=== PATIENT | male | born 1970 | race Caucasian/White ===

== ENCOUNTER 2016-12-28 15:24 | Emergency (ER) | payer SELFPAY ==
[~2016-12-28] VITALS: Ht 180.3 cm; Wt 84.0 kg
[~2016-12-28 15:24] MED LIST: ASPI325T PO; PERC5TAB12 PO
[2016-12-28 15:35] VITALS: BP 142/83; PULSE 89; RESP 18; TEMP 98.5; O2SAT 97
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
== END 2016-12-28 16:47 | disposition left against medical advice (07) ==
LOC: PHEFT 15:24
DX: C44.509 Unspecified malignant neoplasm of skin of other part of trunk (principal); F17.200 Nicotine dependence, unspecified, uncomplicated
CPT/HCPCS: 99281

== ENCOUNTER 2017-03-24 18:48 | Emergency (ER) | payer SELFPAY ==
[2017-03-24 18:50] VITALS: BP 131/94; PULSE 87; RESP 20; TEMP 98.5; O2SAT 98
[2017-03-24] MEDS ORDERED: KETOROLAC TROMETHAMINE 30 MG/ML (IVP) VIAL IV PUSH ONE (19:15)
[2017-03-24] MEDS ORDERED: SODIUM CHLORIDE 0.9% FLUSH 10 ML FLUSH IV FLUSH PRN (19:15)
--- NOTE | 2017-03-24 19:22 | PD ---
HPI Chief Complaint: ENT Complaint Time Seen by Provider: 19:12 Travel History International Travel<30 days: No Contact w/Intl Traveler<30days: No Traveled to known affect area: No History of Present Illness HPI 46-year-old male here for evaluation of left neck mass and pain with swallowing. Symptoms started 2 days ago and have been progressively getting worse. He is able to swallow and tolerate his secretions, however he states it is painful to do so. He denies fevers or chills. Pain is moderate. No other physical complaints. He smokes cigarettes. PFSH Past Medical History Hx Anticoagulant Therapy: Yes (325 MG ASA) Anxiety: Yes Depression: No Heart Rhythm Problems: No Cancer: Yes (carcinoma /melanoma on upper right back) Cardiovascular Problems: No High Cholesterol: No Chemotherapy: No Chest Pain: Yes Cerebrovascular Accident: No Diabetes: No Diminished Hearing: No Deep Vein Thrombosis: Yes (RIGHT THUMB) Endocrine: No Gastrointestinal Disorders: No Genitourinary: No Immune Disorder: No Implanted Vascular Access Dvce: No Musculoskeletal: Yes (chronic back pain) Neurologic: No Psychiatric: No Reproductive: No Respiratory: No Integumentary: Yes (chronic lesion to right posterior back x 2 yrs, skin CA) Immunizations Current: Yes Radiation Therapy: No Past Surgical History Abdominal Surgery: No Cardiac Surgery: No Ear Surgery: No Endocrine Surgery: No Genitourinary Surgery: No Gynecologic Surgery: No Hysterectomy: No Neurologic Surgery: No Oral Surgery: No Thoracic Surgery: No Other Surgery: Yes Social History Alcohol Use: No (QUIT 2015) Tobacco Use: Yes (1/2 PPD) Substance Use: No Allergies-Medications (Allergen,Severity, Reaction): Coded Allergies: Codeine (Verified Allergy, Severe, THROAT SWELLS, 03/24/17) Ultram (Verified Allergy, Mild, HIVES, 03/24/17) Reported Meds & Prescriptions Reported Meds & Active Scripts Active No Active Prescriptions or Reported Medications Review of Systems Except as stated in HPI: all other systems reviewed are Neg Physical Exam Narrative GENERAL: Well-developed, well-nourished, sitting comfortably on chair, no acute distress. HEAD: Atraumatic. Normocephalic. EYES: Pupils equal and round. No scleral icterus. No injection or drainage. ENT: Mucous membranes pink and moist. Normal pharynx. Uvula midline. Normal phonation. No drooling or stridor. NECK: Trachea midline. No JVD. Left submandibular solid mass approximately 3 cm x 2 cm, mobile/not fixed, no induration, no fluctuance, no overlying warmth or erythema. CARDIOVASCULAR: Regular rate and rhythm. RESPIRATORY: No accessory muscle use. Clear to auscultation. Breath sounds equal bilaterally. MUSCULOSKELETAL: No obvious deformities. No clubbing. No cyanosis. No edema. NEUROLOGICAL: Awake and alert. No obvious cranial nerve deficits. Motor grossly within normal limits. Normal speech. PSYCHIATRIC: Appropriate mood and affect; insight and judgment normal. Data Data Last Documented VS Vital Signs Date Time Temp Pulse Resp B/P Pulse Ox O2 Delivery O2 Flow Rate FiO2 03/24/17 18:50 98.5 87 20 131/94 98 Orders Basic Metabolic Panel (Bmp) (03/24/17 19:15) Complete Blood Count With Diff (03/24/17 19:15) Iv Access Insert/Monitor (03/24/17 19:15) Ecg Monitoring (03/24/17 19:15) Oximetry (03/24/17 19:15) Sodium Chloride 0.9% Flush (Ns Flush) (03/24/17 19:15) Ketorolac Inj (Toradol Inj) (03/24/17 19:15) Ct Soft Tiss Neck W Iv Cont (03/24/17 ) Oxycodone-Acetamin 5-325 Mg (Percocet (03/24/17 20:30) Iohexol 350 Inj (Omnipaque 350 Inj) (03/24/17 20:48) Labs Laboratory Tests Test 03/24/17 19:20 White Blood Count 10.2 TH/MM3 Red Blood Count 4.33 MIL/MM3 Hemoglobin 14.5 GM/DL Hematocrit 43.5 % Mean Corpuscular Volume 100.3 FL Mean Corpuscular Hemoglobin 33.6 PG Mean Corpuscular Hemoglobin 33.5 % Concent Red Cell Distribution Width 13.6 % Platelet Count 240 TH/MM3 Mean Platelet Volume 8.8 FL Neutrophils (%) (Auto) 65.0 % Lymphocytes (%) (Auto) 21.6 % Monocytes (%) (Auto) 8.0 % Eosinophils (%) (Auto) 2.1 % Basophils (%) (Auto) 3.3 % Neutrophils # (Auto) 6.7 TH/MM3 Lymphocytes # (Auto) 2.2 TH/MM3 Monocytes # (Auto) 0.8 TH/MM3 Eosinophils # (Auto) 0.2 TH/MM3 Basophils # (Auto) 0.3 TH/MM3 CBC Comment DIFF FINAL Differential Comment Sodium Level 139 MEQ/L Potassium Level 3.5 MEQ/L Chloride Level 102 MEQ/L Carbon Dioxide Level 29.6 MEQ/L Anion Gap 7 MEQ/L Blood Urea Nitrogen 10 MG/DL Creatinine 1.00 MG/DL Estimat Glomerular Filtration 80 ML/MIN Rate Random Glucose 92 MG/DL Calcium Level 8.9 MG/DL [facility] Medical Decision Making Medical Screen Exam Complete: Yes Emergency Medical Condition: Yes Medical Record Reviewed: Yes Differential Diagnosis Sialolithiasis, lymphadenopathy, neck mass Narrative Course Vital signs show heart rate 87, blood pressure 131/94, pulse ox 98% on room air , oral temp of 98.5F. CBC shows WBC 10.2, hemoglobin 14.5, hematocrit 43.5, platelets 240. BMP is unremarkable. CT soft tissue neck: CONCLUSION: 1. Single prominent left cervical chain node measuring up to 1.8 x 1.7 cm with no necrosis. This is nonspecific but may be reactive. 2. No mucosal lesions identified. 3. Mild emphysema in the lung apices. Patient was made aware of CT and lab findings. He is resting comfortably and tolerating coffee without difficulty. He does have a rather large skin lesion on his right mid back which she has been to the emergency department several times for and has been referred for outpatient follow-up for biopsy, however the patient has missed these appointments. He was also given a mandatory referral to follow-up with Dr. Vitale, however the patient missed his appointment because he was arrested for a traffic violation. This wound/skin lesion is weeping today, and a sterile pressure dressing was applied. I stressed the importance of follow-up to obtain a biopsy as this is likely skin cancer. As for his lymphadenopathy, the patient will be started on Keflex as he has no insurance and this is either free or a few dollars at [employer]. I will again order a mandatory outpatient follow-up for this patient and I'll also given the information to the [facility] where he can follow-up for further treatment and evaluation. He was informed on when to return to the emergency department. He verbalizes understanding and agreement with plan. Diagnosis Primary Impression: Pharyngitis Qualified Code: J02.9 - Pharyngitis, unspecified etiology Additional Impression: Cervical lymphadenopathy Referrals: Olga Vitale MD 3 days [facility] 3 days Primary Care Physician 3 days Additional Instructions: Follow-up with a primary care physician this week. Take antibiotic as prescribed. Return to the emergency department for worsening symptoms or any other concerns. Scripts Oxycodone-Acetaminophen (Percocet)5-325 mg Tab1 Tab PO Q6H PRN (PAIN) #15 TAB Ref 0 Prov:Arian Sapp MD 03/24/17 Cephalexin (Keflex)500 Mg Giz056 Mg PO Q8H #30 CAP Ref 0 Prov:Arian Sapp MD 03/24/17 Disposition: 01 DISCHARGE HOME Condition: Stable Arian Sapp MD Mar 24, 2017 19:22
[2017-03-24 19:42] LABS: AUTOMATED NEUTROPHIL # 6.7 TH/MM3 (1.8-7.7); BASOPHIL # 0.3 TH/MM3 (0-0.2); BASOPHIL % 3.3 % (0.0-2.0); EOSINOPHIL # 0.2 TH/MM3 (0-0.4); EOSINOPHIL % 2.1 % (0.0-4.0); HEMATOCRIT 43.5 % (39.0-51.0); HEMO FLAGS DIFF FINAL; LYMPH % 21.6 % (9.0-44.0); LYMPHOCYTE # 2.2 TH/MM3 (1.0-4.8); MEAN CELL VOLUME 100.3 FL (80.0-100.0); MEAN CORPUSCULAR HEMOGLOBIN 33.6 PG (27.0-34.0); MEAN CORPUSCULAR HGB CONC 33.5 % (32.0-36.0); PLATELET COUNT 240 TH/MM3 (150-450); RED BLOOD COUNT 4.33 MIL/MM3 (4.50-5.90); RED CELL DISTRIBUTION WIDTH 13.6 % (11.6-17.2); WHITE BLOOD COUNT 10.2 TH/MM3 (4.0-11.0)
[2017-03-24 19:53] LABS: POTASSIUM 3.5 MEQ/L (3.5-5.1)
[2017-03-24 19:56] LABS: BICARBONATE 29.6 MEQ/L (21.0-32.0)
[2017-03-24] MEDS ORDERED: oxyCODONE/ACETAMINOPHEN 5 MG/325 MG TAB PO ONE (20:30)
[2017-03-24] MEDS ORDERED: IOHEXOL 350 MG/ML 10 ML VIAL (for RAD DIAG) IV ONE (20:48)
--- NOTE | 2017-03-24 21:02 | RADRPT ---
EXAM DATE/TIME: 03/24/2017 20:36 [facility] COMPARISON: No previous studies available for comparison. INDICATIONS : Dysphagia, left sided neck swelling. IV CONTRAST: 75 cc Omnipaque 350 (iohexol) IV RADIATION DOSE: 12.64 CTDIvol (mGy) MEDICAL HISTORY : None SURGICAL HISTORY : None. ENCOUNTER: Initial ACUITY: 1 day PAIN SCALE: 8/10 LOCATION: Left neck TECHNIQUE: Volumetric scanning of the neck was performed. Using automated exposure control and adjustment of th e mA and/or kV according to patient size, radiation dose was kept as low as reasonably achievable to obtain optimal diagnostic quality images. DICOM format image data is available electronically for r eview and comparison. FINDINGS: NASOPHARYNX: The nasopharyngeal airway has a normal configuration. No mucosal thickening or mass is seen. OROPHARYNX: The intrinsic muscles of the tongue are symmetric. The tonsillar pillars are intact. The prevertebr al soft tissues are not thickened. LARYNX: The supraglottic, glottic, and infraglottic structures are intact. PARAPHARYNGEAL: The parapharyngeal space is intact. SALIVARY GLANDS: The parotid and submandibular glands are intact. LYMPH NODES: There is small scattered reactive appearing cervical chain nodes as well as a single prominent left c ervical chain node at the angle of the mandible measuring up to approximately 1.8 x 1.7 cm with no ne crosis. THYROID: Homogeneous enhancement without evidence of nodule. BONES: Unremarkable. There is mild emphysema in the lung apices. CONCLUSION: 1. Single prominent left cervical chain node measuring up to 1.8 x 1.7 cm with no necrosis. This is n onspecific but may be reactive. 2. No mucosal lesions identified. 3. Mild emphysema in the lung apices. Alvino Hidalgo MD on March 24, 2017 at 20:57 Board Certified Radiologist. This report was verified electronically.
[2017-03-24] MEDS ORDERED: CEPHALEXIN MONOHYDRATE 500 MG CAP PO ONE (21:15)
[2017-03-24] MEDS ORDERED: PERC5TAB12 PO (21:16)
[2017-03-24] MEDS ORDERED: CEPH-460 PO (21:16)
[2017-03-24 21:25] VITALS: BP 154/91
== END 2017-03-24 21:30 | disposition home or self-care (01) ==
LOC: PHED 18:48
DX: J02.9 Acute pharyngitis, unspecified (principal); R59.0 Localized enlarged lymph nodes; Z85.820 Personal history of malignant melanoma of skin; Z86.718 Personal history of other venous thrombosis and embolism; Z79.82 Long term (current) use of aspirin; F17.210 Nicotine dependence, cigarettes, uncomplicated
CPT/HCPCS: 70491; 80048; 85025; 96374; 99285; J1885; Q9967

== ENCOUNTER 2017-04-24 17:34 | Emergency (ER) | payer SELFPAY ==
[~2017-04-24 17:34] MED LIST changes: -ASPI325T PO; +CEPH-460 PO
[2017-04-24 17:36] VITALS: BP 124/75; PULSE 86; RESP 20; TEMP 98.3; O2SAT 97
[2017-04-24] MEDS ORDERED: CLINDAMYCIN 150 MG CAP PO ONE (17:45)
[2017-04-24] MEDS ORDERED: KETOROLAC TROMETHAMINE 60 MG/2 ML (IM) VIAL IM ONE (17:45)
[2017-04-24] MEDS ORDERED: LIDOCAINE VISCOUS 2% SOLN 15 ML UDC PO ONE (17:45)
[2017-04-24] MEDS ORDERED: ALUMINUM/MAGNESIUM/SIMETH 30 ML CUP PO ONE (17:45)
[2017-04-24] MEDS ORDERED: predniSONE 50 MG TAB PO ONE (17:45)
[2017-04-24] MEDS ORDERED: oxyCODONE/ACETAMINOPHEN 5 MG/325 MG TAB PO ONE (17:45)
[2017-04-24] MEDS ORDERED: PRED50 PO (17:56)
[2017-04-24] MEDS ORDERED: PERC5TAB12 PO (17:56)
[2017-04-24] MEDS ORDERED: CLIN1CAP5 PO (17:56)
--- NOTE | 2017-04-24 17:56 | PD ---
HPI Chief Complaint: Edema Time Seen by Provider: 17:41 Travel History International Travel<30 days: No Contact w/Intl Traveler<30days: No Traveled to known affect area: No History of Present Illness HPI 46-year-old male here for evaluation of left neck mass and painful swallowing. Patient was seen by me in the emergency department one month ago for the same mass. He had a CT scan which revealed a single enlarged cervical chain lymph node which was thought to be reactive. The patient was started on Keflex and reports that the swelling did go down over the last month, however over the last couple of days the mass seems a little bit larger and is more painful. Pain is worse with swallowing. He is able to swallow and tolerate his secretions. He is also complaining of throat pain. No fevers. Patient was made aware that this could be cancer, and was instructed to follow-up with primary care physician as well as ENT during last visit, however the patient has not arranged for follow-up. The patient also has a suspicious lesion on his right mid back which is thought to be cancerous as well, however the patient has not had this lesion evaluated. PFSH Past Medical History Hx Anticoagulant Therapy: Yes (325 MG ASA) Anxiety: Yes Depression: No Heart Rhythm Problems: No Cancer: Yes (carcinoma /melanoma on upper right back) Cardiovascular Problems: No High Cholesterol: No Chemotherapy: No Chest Pain: Yes Cerebrovascular Accident: No Diabetes: No Diminished Hearing: No Deep Vein Thrombosis: Yes (RIGHT THUMB) Endocrine: No Gastrointestinal Disorders: No Genitourinary: No Immune Disorder: No Implanted Vascular Access Dvce: No Musculoskeletal: Yes (chronic back pain) Neurologic: No Psychiatric: No Reproductive: No Respiratory: No Integumentary: Yes (chronic lesion to right posterior back x 2 yrs, skin CA) Immunizations Current: Yes Radiation Therapy: No ?: Not Past Surgical History Abdominal Surgery: No Cardiac Surgery: No Ear Surgery: No Endocrine Surgery: No Genitourinary Surgery: No Gynecologic Surgery: No Hysterectomy: No Neurologic Surgery: No Oral Surgery: No Thoracic Surgery: No Other Surgery: Yes Social History Alcohol Use: No (QUIT 2015) Tobacco Use: Yes (09/28 PPD) Substance Use: No Allergies-Medications (Allergen,Severity, Reaction): Coded Allergies: Codeine (Verified Allergy, Severe, THROAT SWELLS, 04/24/17) Ultram (Verified Allergy, Mild, HIVES, 04/24/17) Reported Meds & Prescriptions Reported Meds & Active Scripts Active No Active Prescriptions or Reported Medications Review of Systems Except as stated in HPI: all other systems reviewed are Neg Physical Exam Narrative GENERAL: Well-developed, well-nourished, no acute distress, ambulated from triage to exam room without difficulty and without assistance. SKIN: Focused skin assessment warm/dry. Moderate-sized weeping lesion on right mid back concerning for skin cancer. HEAD: Atraumatic. Normocephalic. EYES: Pupils equal and round. No scleral icterus. No injection or drainage. ENT: Mucous membranes pink and moist. Edentulous. Normal pharynx. Normal phonation. No drooling or stridor. NECK: Trachea midline. No JVD. Left submandibular solid mass approximately 3 cm x 2 cm which is mobile/non-fixed, no induration, no fluctuance, no overlying warmth or erythema. This mass is moderately tender. CARDIOVASCULAR: Regular rate and rhythm. RESPIRATORY: No accessory muscle use. Clear to auscultation. Breath sounds equal bilaterally. MUSCULOSKELETAL: No obvious deformities. No clubbing. No cyanosis. No edema. NEUROLOGICAL: Awake and alert. No obvious cranial nerve deficits. Motor grossly within normal limits. Normal speech. PSYCHIATRIC: Appropriate mood and affect; insight and judgment normal. Data Data Last Documented VS Vital Signs Date Time Temp Pulse Resp B/P Pulse Ox O2 Delivery O2 Flow Rate FiO2 04/24/17 17:36 98.3 86 20 124/75 97 Orders Ketorolac Inj (Toradol Inj) (04/24/17 17:45) Prednisone (Deltasone) (04/24/17 17:45) Oxycodone-Acetamin 5-325 Mg (Percocet (04/24/17 17:45) Al-Mag Hy-Si 40-40-4 Mg/Ml Liq (Mag-Al P (04/24/17 17:45) Lidocaine 2% Viscous (Xylocaine 2% Visco (04/24/17 17:45) Clindamycin (Cleocin) (04/24/17 17:45) MDM Medical Decision Making Medical Screen Exam Complete: Yes Emergency Medical Condition: Yes Differential Diagnosis Lymphadenopathy, lymphoma, skin cancer, cancer Narrative Course Vital signs reviewed. See history of present illness. This is a 46-year-old male who presents for evaluation of left neck mass. Patient was evaluated by me in the emergency department last month, and CT soft tissue neck showed a single prominent left cervical chain lymph node measuring 1.8 x 1.7 cm with no necrosis. This is nonspecific but may be reactive. Patient was given Keflex at that visit, and reports that the mass improved with pain as well as size, however the last few days the pain has worsened in the node appears to be larger. Patient reports pain with swallowing. On exam he is able to swallow and tolerate his secretions. His pharynx is normal. He does have a left submandibular neck mass that is solid/firm, mobile/not fixed. There is no warmth or erythema. No fluctuance or induration. I discussed with the patient that this is likely cancer, just the importance of outpatient follow-up. I will order a mandatory referral for oncology as well as ENT. Patient did have patient assistance here at one point, however missed his primary care appointment. He states he is in the process of trying to obtain another primary care physician. Plan is to start him on clindamycin and have him follow-up as an outpatient. Patient informed on when to return to the emergency department. He verbalizes understanding and agreement with plan. Diagnosis Primary Impression: Cervical lymphadenopathy Referrals: Vic Villa MD 3 days ENT Venancio Jerome MD 3 days Oncologist Primary Care Physician 3 days Additional Instructions: Follow-up with oncologist Dr. Jerome on oncologist of your choice this week. Follow-up with ENT Dr. Villa or an ENT of your choice this week. Follow-up with a primary care physician this week. Return to the emergency department for worsening symptoms or any other concerns. Scripts Prednisone 50 Mg Tab50 Mg PO DAILY 5 Days Ref 0 Prov:Arian Sapp MD 04/24/17 Oxycodone-Acetaminophen (Percocet)5-325 mg Tab1 Tab PO Q6H PRN (PAIN) #15 TAB Ref 0 Prov:Arian Sapp MD 04/24/17 Clindamycin 150 Mg [id number] Mg PO Q6H 10 Days Ref 0 Prov:Arian Sapp MD 04/24/17 Disposition: 01 DISCHARGE HOME Condition: Stable Arian Sapp MD Apr 24, 2017 17:56
[2017-04-24 18:25] VITALS: RESP 18
== END 2017-04-24 18:26 | disposition home or self-care (01) ==
LOC: PHED 17:34
DX: R59.0 Localized enlarged lymph nodes (principal); R13.10 Dysphagia, unspecified; R07.0 Pain in throat; L98.9 Disorder of the skin and subcutaneous tissue, unspecified; F17.200 Nicotine dependence, unspecified, uncomplicated; Z79.82 Long term (current) use of aspirin; Z86.59 Personal history of other mental and behavioral disorders; Z85.828 Personal history of other malignant neoplasm of skin; Z86.718 Personal history of other venous thrombosis and embolism; Z87.39 Personal history of other diseases of the musculoskeletal system and connective tissue; Z87.2 Personal history of diseases of the skin and subcutaneous tissue
CPT/HCPCS: 96372; 99284; J1885; J7512

== ENCOUNTER 2017-06-26 15:21 | Emergency (ER) | payer MEDICAID ==
[~2017-06-26] VITALS: Ht 177.8 cm; Wt 82.5 kg
[~2017-06-26 15:21] MED LIST changes: +ASPI81CH PO; -CEPH-460 PO; +CLIN1CAP5 PO
[2017-06-26 15:41] VITALS: BP 131/70; PULSE 91; RESP 16; TEMP 99.3; O2SAT 96
[2017-06-26] MEDS ORDERED: ACETAMINOPHEN 325 MG TAB PO ONE (17:00)
--- NOTE | 2017-06-26 17:07 | PD ---
HPI Chief Complaint: ENT Complaint Time Seen by Provider: 16:52 Travel History International Travel<30 days: No Contact w/Intl Traveler<30days: No Traveled to known affect area: No History of Present Illness HPI 46 y/o male presents with sore throat that worsens when he tries to eat food. He states he's also been having a stuffy nose. He denies any fever, vomiting or other concurrent complaints other than having difficulty getting into a primary physician for evaluation of the mass on his neck. He states that's been there for months. He is requesting something for his sore throat. Quality is sore. Location throat. PFSH Past Medical History Hx Anticoagulant Therapy: Yes (325 MG ASA) Anxiety: Yes Depression: No Heart Rhythm Problems: No Cancer: Yes (carcinoma /melanoma on upper right back) Cardiovascular Problems: No High Cholesterol: No Chemotherapy: No Chest Pain: Yes Cerebrovascular Accident: No Diabetes: No Diminished Hearing: No Deep Vein Thrombosis: Yes (RIGHT THUMB) Endocrine: No Gastrointestinal Disorders: No Genitourinary: No Immune Disorder: No Implanted Vascular Access Dvce: No Musculoskeletal: Yes (chronic back pain) Neurologic: No Psychiatric: No Reproductive: No Respiratory: No Integumentary: Yes (chronic lesion to right posterior back x 2 yrs, skin CA) Immunizations Current: Yes Radiation Therapy: No ?: Not Past Surgical History Abdominal Surgery: No Cardiac Surgery: No Ear Surgery: No Endocrine Surgery: No Genitourinary Surgery: No Gynecologic Surgery: No Hysterectomy: No Neurologic Surgery: No Oral Surgery: No Thoracic Surgery: No Other Surgery: Yes Social History Alcohol Use: No (FORMER 06/24/16) Tobacco Use: Yes (1/2 PPD) Substance Use: No Allergies-Medications (Allergen,Severity, Reaction): Coded Allergies: codeine (Unverified Allergy, Severe, THROAT SWELLS, 06/26/17) tramadol (Unverified Allergy, Mild, HIVES, 06/26/17) Reported Meds & Prescriptions Reported Meds & Active Scripts Active Reported Aspirin 81 Mg Chew 325 Mg PO DAILY Review of Systems Except as stated in HPI: all other systems reviewed are Neg Physical Exam Narrative General: No apparent distress, well appearing, no stridor, controlling secretions ENT: Posterior oropharyngx clear without exudate, mild erythema noted, no tonsillar hypertrophy, uvula midline, no tonsillar abscess, just below left angle of the mandible there is a 2 x 2 centimeter mobile lymph node without overlying cellulitic changes that has similar description as note from one month ago Neck: Neck is supple, no meningeal signs, trachea is midline Cardiovascular: Regular rate and rhythm Lungs: No increased respiratory effort noted, CTA bilaterally Abdomen: Soft, nontender Extremities: No edema Neuro: Awake, motor and sensation grossly intact, normal speech Data Data Last Documented VS Vital Signs Date Time Temp Pulse Resp B/P (MAP) Pulse Ox O2 Delivery O2 Flow Rate FiO2 06/26/17 17:45 06/26/17 17:09 75 18 96 Room Air 06/26/17 15:41 99.3 Orders Orders Group A Rapid Strep Screen (06/26/17 16:58) Acetaminophen (Tylenol) (06/26/17 17:00) Strep Culture (Group A) (06/26/17 17:00) MDM Medical Decision Making Medical Screen Exam Complete: Yes Emergency Medical Condition: Yes Medical Record Reviewed: Yes (past history confirmed) Interpretation(s) strep is negative Differential Diagnosis URI, strep pharyngitis, cancer, reactive lymph node Narrative Course Will check strep screen and dose with Tylenol. Patient able to drink water without difficulty. Patient needs outpatient biopsy of lymph node and will begin give patient assistance information. strep is negative, Patient denies any new complaints, all questions answered. Patient knows that follow up is incumbent on them and to return to the emergency room immediately if new or worsening symptoms develop. Patient given strict return precautions, agrees to further workup as an outpatient. Diagnosis Primary Impression: Sore throat Additional Impression: Neck mass Referrals: [facility] call for appointment Ear / Nose / Throat Specialist call for appointment Patient Assistance Program call for appointment Patient Instructions: General Instructions Additional Instructions: tylenol as needed, follow with ent, return as needed Med/Other Pt SpecificInfo: No Change to Meds Disposition: 01 DISCHARGE HOME Condition: Stable Anitha Dejesus MD Jun 26, 2017 17:07
[2017-06-26 17:09] VITALS: BP 134/61; PULSE 75; RESP 18; O2SAT 96
== END 2017-06-26 17:48 | disposition home or self-care (01) ==
LOC: PHED 15:21
DX: J02.9 Acute pharyngitis, unspecified (principal); R22.1 Localized swelling, mass and lump, neck; R09.81 Nasal congestion; F17.200 Nicotine dependence, unspecified, uncomplicated; Z79.82 Long term (current) use of aspirin; Z86.59 Personal history of other mental and behavioral disorders; Z85.828 Personal history of other malignant neoplasm of skin; Z86.718 Personal history of other venous thrombosis and embolism; Z87.39 Personal history of other diseases of the musculoskeletal system and connective tissue
CPT/HCPCS: 87081; 87880; 99283

== ENCOUNTER → 2017-07-09 | Outpatient (CLI) | payer MEDICAID ==
[~2017-07-09] MED LIST changes: -CLIN1CAP5 PO; +IOHEXOL 350 MG/ML 10 ML VIAL (for RAD DIAG) IVCONTRAST ONE; -PERC5TAB12 PO
--- NOTE | 2017-07-09 16:10 | RADRPT ---
EXAM DATE/TIME: 07/09/2017 14:48 [facility] COMPARISON: No previous studies available for comparison. INDICATIONS : Skin cancer, initial staging. IV CONTRAST: 100 cc Omnipaque 350 (iohexol) IV ; Cumulative dose for multiple exams. ORAL CONTRAST: Prescribed oral contrast ingested. RADIATION DOSE: 10.47 CTDIvol (mGy) ; Combined studies - Thorax/Abdomen/Pelvis MEDICAL HISTORY : None Skin cancer newly diagnosed. SURGICAL HISTORY : None. ENCOUNTER: Initial ACUITY: 1 day PAIN SCALE: 4/10 LOCATION: Bilateral abdominal TECHNIQUE: Volumetric scanning of the abdomen and pelvis was performed. Using automated exposure control and ad justment of the mA and/or kV according to patient size, radiation dose was kept as low as reasonably achievable to obtain optimal diagnostic quality images. DICOM format image data is available electro nically for review and comparison. FINDINGS: LOWER LUNGS: The visualized lower lungs are clear. LIVER: Homogeneous density without lesion. There is no dilation of the biliary tree. No calcified gallston es. SPLEEN: Normal size without lesion. PANCREAS: Within normal limits. KIDNEYS: Normal in size and shape. There is no mass, stone or hydronephrosis. ADRENAL GLANDS: Within normal limits. VASCULAR: There is no aortic aneurysm. BOWEL/MESENTERY: The stomach, small bowel, and colon demonstrate no acute abnormality. There is no free intraperitone al air or fluid. ABDOMINAL WALL: Within normal limits. RETROPERITONEUM: There is no lymphadenopathy. BLADDER: No wall thickening or mass. REPRODUCTIVE: Within normal limits. INGUINAL: There is no lymphadenopathy or hernia. MUSCULOSKELETAL: Mild degenerative changes both SI joints. CONCLUSION: Negative for metastatic disease. Mild degenerative changes both SI joints. Erich Domingo MD FACR on July 09, 2017 at 16:07 Board Certified Radiologist. This report was verified electronically.
--- NOTE | 2017-07-09 16:11 | RADRPT ---
EXAM DATE/TIME: 07/09/2017 14:48 [facility] COMPARISON: No previous studies available for comparison. INDICATIONS : Initial staging for skin cancer. IV CONTRAST: 96 cc Omnipaque 350 (iohexol) IV ; Cumulative dose for multiple exams. RADIATION DOSE: 10.47 CTDIvol (mGy) ; Combined studies - Thorax/Abdomen/Pelvis MEDICAL HISTORY : Newly diagnosed skin cancer. SURGICAL HISTORY : None. ENCOUNTER: Initial ACUITY: 1 day PAIN SCALE: 6/10 LOCATION: chest TECHNIQUE: Volumetric scanning of the chest was performed. Using automated exposure control and adjustment of t he mA and/or kV according to patient size, radiation dose was kept as low as reasonably achievable to obtain optimal diagnostic quality images. DICOM format image data is available electronically for review and comparison. Follow-up recommendations for detected pulmonary nodules are based at a minimum on nodule size and pa tient risk factors according to Fleischner Society Guidelines. FINDINGS: LUNGS: There is no consolidation or pneumothorax. No concerning pulmonary nodule is visualized. PLEURA: There is no pleural thickening or pleural effusion. MEDIASTINUM: The heart and great vessels demonstrate no acute abnormality. There is no mediastinal or hilar lymph adenopathy. AXILLAE: Within normal limits. No lymphadenopathy. SKELETAL: Within normal limits for patient age. MISCELLANEOUS: The visualized upper abdominal organs demonstrate no acute abnormality. CONCLUSION: Negative for metastatic disease. Erich Domingo MD FACR on July 09, 2017 at 16:09 Board Certified Radiologist. This report was verified electronically.
== END ==
LOC: HRAD 12:56
PROVIDERS: ATTEND Internal Medicine
DX: C44.90 Unspecified malignant neoplasm of skin, unspecified (principal)
CPT/HCPCS: 71260; 74177; Q9967

== ENCOUNTER 2017-07-23 12:59 | Day surgery (SDC) | payer MEDICAID ==
[~2017-07-23 12:59] MED LIST changes: -IOHEXOL 350 MG/ML 10 ML VIAL (for RAD DIAG) IVCONTRAST ONE
[2017-07-23 14:05] VITALS: BP 142/96; PULSE 80; RESP 20; TEMP 98.8; O2SAT 100
[2017-07-23] MEDS ORDERED: LIDOCAINE HCL 1% 20 ML VIAL ONE (14:09)
[2017-07-23 14:20] VITALS: BP 151/90; PULSE 83; RESP 18; O2SAT 100
--- NOTE | 2017-07-23 14:23 | RADRPT ---
EXAM DATE/TIME: 07/23/2017 13:20 [facility] COMPARISON: No previous studies available for comparison. INDICATIONS : Palpable left submandibular mass. MEDICAL HISTORY : Skin cancer. SURGICAL HISTORY : None. ENCOUNTER: Initial ACUITY: 2 months PAIN SCORE: 4/10 LOCATION: Left neck ORGAN: Left lymph node SPECIMENS: Three core specimen(s) submitted for pathologic evaluation. DEVICE: 18 gauge Temno needle Post procedure scanning reveals no hematoma or other complication. The possibility does exist that the tissue obtained will be non-diagnostic. If the sample is non-phyllis gnostic a repeat biopsy or surgical biopsy may need to be performed. TECHNIQUE: 1. Ultrasound guidance for needle biopsy. 2. Needle biopsy. The risks, benefits and alternatives to the procedure were explained and verbal and written consent w as obtained. The site was prepped in sterile fashion. Full sterile technique was used, including ca p, mask, sterile gloves and gown and a large sterile sheet. Hand hygiene and 2% chlorhexidine and/or betadine/alcohol prep was utilized per protocol for cutaneous antisepsis. The skin and subcutaneous tissues were infiltrated with local anesthetic solution. Sterile gel and sterile probe cover were u tilized for ultrasound guidance. With the patient on the ultrasound table, images were obtained. This confirms a hypervascular 2.8 x 2.9 x 1.9 cm mass in the submandibular region near the angle of the mandible. There is associated hyp eremia. Overall appearance is consistent with an enlarged lymph node. A needle was advanced into the identified target and the number of specimens as above obtained and mascorro bmitted for pathologic evaluation. Sample was also submitted in RPMI. The patient tolerated the procedure well and left the ultrasound suite in stable condition. CONCLUSION: Uncomplicated ultrasound guided needle biopsy. Gabriel Christianson MD on July 23, 2017 at 14:20 Board Certified Radiologist. This report was verified electronically.
== END 2017-07-23 14:20 | disposition home or self-care (01) ==
LOC: HRAD 12:59 → HRIP 13:01 → HRAD 14:20
PROVIDERS: ATTEND Otolaryngology Otolaryngology/Facial Plastic Surgery
DX: R22.1 Localized swelling, mass and lump, neck (principal)
CPT/HCPCS: 38505; 76942; 88305; 88341; 88342

== ENCOUNTER → 2018-01-19 | Day surgery (SDC) | payer OTHER ==
[~2018-01-19] VITALS: Ht 180.3 cm; Wt 80.5 kg
[~2018-01-19] MED LIST changes: +*MEPERIDINE 25 MG INJ VIAL PERIprocedural Use ONLY ONE; +*morphine SULFATE 4 MG/ML PERIprocedure ONLY ONE; +ACETAMINOPHEN 1000 MG/100 ML 100 ML IV ONE; +ASPI-516 PO; -ASPI81CH PO; +BACITRACIN TOP OINT 15 GM TUBE ONE; +BUPIVACAINE/EPINEPHRINE 0.25% PF 30 ML VIAL INFIL ONE; +CHLORHEXIDINE GLUCONATE 2 % 1 PACK (2 CLOTHS) TOPICAL PRN; +CLON1 PO; +DEXAMETHASONE SOD PHOS 4 MG/ML VIAL IV ONE; +DO NOT ADM ANY ANTICOAGULANT DRUGS PRN; +EPINEPHrine HCL (1:1000) 1 MG/ML VIAL ONE; +GLYCOPYRROLATE 1 MG/5 ML SYRINGE IV PUSH ONE; +KETAMINE HCL 500 MG/10 ML VIAL ONE; +LACTATED RINGER'S 1000 ML INJ 1,000 ML IV ONE; +LACTATED RINGER'S 1000 ML IV PRN; +LIDOCAINE 1%/EPINEPHrine 1:100,000 SOLN 30 ML VIAL ONE; +LIDOCAINE HCL 1% PF 5 ML SYRINGE OTHER ONE; +METOPROLOL TARTRATE 25 MG TAB PO PRN; +MIDAZOLAM HCL 2 MG/2 ML VIAL ONE; +MINERAL OIL 10 ML VIAL ONE; +MORP1TAB25 PO; +MORPHINE SULFATE 4 MG/ML INJ ONE; +NEOSTIGMINE 5 MG/5 ML SYRINGE IV PUSH ONE; +ONDANSETRON HCL 4 MG/2 ML VIAL IV ONE; +OXYC-103 PO; +POVIDONE IODINE 5% (ANTISEPSIS KIT) 4 APPLICATIONS EACH NARE PRN; +PROPOFOL 200 MG/20 ML AMP IV ONE; +ROCURONIUM INJ 50 MG/5 ML SYRINGE IV PUSH ONE; +SODIUM CHLORID 0.9% 500 ML IV PRN; +ZOLP1SUB2 SL; +ZYBA150T PO; +ceFAZolin 2 GM/DEX PREMIX 50 ML IV SCH; +clonazePAM 1 MG TAB PO ONE
[2018-01-19 09:00] LABS: BASOPHIL # 0.1 TH/MM3 (0-0.2); BASOPHIL % 0.7 % (0.0-2.0); EOSINOPHIL # 0.2 TH/MM3 (0-0.4); EOSINOPHIL % 1.9 % (0.0-4.0); HEMOGLOBIN 14.5 GM/DL (13.0-17.0); LYMPH % 10.4 % (9.0-44.0); LYMPHOCYTE # 1.1 TH/MM3 (1.0-4.8); MEAN CELL VOLUME 101.8 FL (80.0-100.0); MEAN CORPUSCULAR HEMOGLOBIN 34.4 PG (27.0-34.0); MEAN CORPUSCULAR HGB CONC 33.8 % (32.0-36.0); MEAN PLATELET VOLUME 8.3 FL (7.0-11.0); MONO % 7.5 % (0.0-8.0); MONOCYTE # 0.8 TH/MM3 (0-0.9); NEUT % 79.5 % (16.0-70.0); PLATELET COUNT 289 TH/MM3 (150-450); RED BLOOD COUNT 4.23 MIL/MM3 (4.50-5.90); RED CELL DISTRIBUTION WIDTH 13.7 % (11.6-17.2); WHITE BLOOD COUNT 10.1 TH/MM3 (4.0-11.0)
[2018-01-19 09:24] LABS: BICARBONATE 26.4 MEQ/L (21.0-32.0); CALCIUM 9.2 MG/DL (8.5-10.1); CREATININE 0.93 MG/DL (0.60-1.30)
[2018-01-19 14:45] VITALS: BP 144/86; PULSE 75; RESP 18; TEMP 97.5; O2SAT 95
--- NOTE | 2018-01-19 16:56 | MP ---
cc: Merlin Clements MD DATE OF OPERATION: 01/19/2018 DATE OF SURGERY: 01/19/2018 PREOPERATIVE DIAGNOSES: 1. 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 2. Intractable pain from multiple cutaneous metastases. POSTOPERATIVE DIAGNOSES: 1. Stage IV [place] cell carcinoma with multiple cutaneous metastases. 2. Intractable pain from multiple cutaneous metastases. PROCEDURE PERFORMED: 1. Wide excision of right mid back metastatic Rocael cell carcinoma, 15 x 11 cm excision with rhomboid rotational flap closure, 15 x 11 cm wound closure with a 8 x 10 cm flap from lateral flank skin and subcutaneous tissue. 2. Wide excision and intermediate closure of 2.5 x 6 cm left posterior neck metastatic carcinoma. 3. Wide excision and complex closure of left forehead and scalp of metastatic cutaneous lesion with wound size 2.5 x 6 cm. FINDINGS: All wounds were closed with mild tension of all skin viable. BLOOD LOSS: 100 mL COMPLICATIONS: None. INDICATIONS: The patient is a 47-year-old male who has had a longstanding history of [place] cell carcinoma, metastatic to multiple areas of his skin. The patient has no visceral or solid organ metastasis and instead has mainly skin and lymph node disease. The patient is being managed by Dr. Lorenz, as well as Dr. Gage currently. The patient developed 3 areas of intractably painful metastasis on the skin associated with wound care and bleeding and increasing doses of narcotics to control the pain. He was referred to Surgical Oncology for consideration of palliative resection of these painful metastases. The patient described the metastases, most of which his pain was from 3 specific areas, one on the left forehead, left posterior neck and the right mid back. After discussion with the patient about the risks, benefits and alternatives to metastasectomy, he agreed to undergo the procedure. I had a discussion with the patient, specifically about a flap versus graft closure, was also had about the large lesion on the midback and he has agreed to this plan of care. PROCEDURE: The patient was taken to the operating room and placed in the supine position, placed under general endotracheal anesthesia. The patient was placed in the left lateral decubitus position. The right flank and right side of the back was prepped and draped in a sterile fashion. Timeout was performed. Local anesthetic was instilled in a field type block around the planned excision. A rhomboid skin rotational flap was marked out to completely close the wound, as this was far too large to close primarily and the patient would not want a split thickness skin graft due to the donor site discomfort. We measured this out and excised this with a 10 blade scalpel, followed by the Bovie electrocautery. We excised a 15 x 11 cm area of the left mid back down to the deep fascia of the latissimus muscle. This was marked with a stitch superior and passed off for permanent processing. We gained hemostasis. We then made our flap incisions horizontal and then our counter back incision as a rhomboid, completing the rhomboid shape with an inferior blood supply. This was again mobilized carefully with the Bovie electrocautery off of the underlying fascia, taking all of the subcutaneous tissue and vasculature. We did extensive undermining throughout the wound, as well as under the flap wound 360 degrees with the exception of undermining under the flap to minimize injury to the blood supply. We then rotated this medially which covered approximately 80% of the wound. We closed the flap donor site, as well as secured the flap to the edges of the wound with 0 deep dermal Vicryl sutures. We placed approximately 15 of these and we are able to close the entire wound and the flap donor site with minimal tension. We then used approximately 30 Nylon vertical mattress sutures using 2-0 Nylon to close the skin throughout the flap and the donor site. We had excellent closure. All skin was healthy and pink and viable. We placed antibacterial ointment and placed sterile occlusive dressing. Then turned the patient opposite to a right lateral decubitus position. We prepped the left posterior neck and the left side of the face with Betadine and a sterile drape was applied around the surgical site. We instilled both these areas with local anesthetic. I made an elliptical type incisions around both of these starting with the left posterior neck. This was done with a 15 blade scalpel, followed by the Bovie electrocautery down to the superficial fascia of the latissimus muscle on the neck. This was closed with a deep dermal 3-0 Vicryl suture, followed by 2-0 Nylon sutures as well. This was an intermediate closure with 2 layers, 2 x 6 cm. We then turned our attention towards the facial incision. We excised this and this again was a 2.5 x 6 cm up towards on the forehead, very superior towards the hairline. We used Bovie electrocautery to dissect some of the frontalis muscle down to the periosteum. This was passed off with a stitch medially and for permanent processing. We did some undermining, at least 2 cm, 360 degrees around the wound. This was under some moderate tension. We closed this with 0 Vicryl sutures, followed by 2-0 Nylon simple interrupted sutures externally. We then placed sterile dressings and antibacterial ointment to the neck and the facial incisions. The patient was discontinued from anesthesia after placed back in supine position. He tolerated the procedure well. No apparent complications. All counts were correct. I was present and scrubbed for the entire procedure. Merlin Clements MD AWG/TL/ , 02:50 PM , 03:28 PM MTDKarlie
== END | disposition home or self-care (01) ==
LOC: HSDC 07:52
PROVIDERS: ATTEND Surgery
DX: C4A.59 Merkel cell carcinoma of other part of trunk (principal); C4A.4 Merkel cell carcinoma of scalp and neck; Z72.0 Tobacco use
CPT/HCPCS: 00300; 13131; 14301; 21011; 21555; 21931; 80048; 85025; 88305; J0131; J0690; J1100; J2175; J2250; J2270; J2405; J2710; J3010; J7120; J0171

== ENCOUNTER 2018-02-28 13:07 | Emergency (ER) | payer OTHER ==
[~2018-02-28] VITALS: Ht 180.3 cm; Wt 79.0 kg
[~2018-02-28 13:07] MED LIST changes: -*MEPERIDINE 25 MG INJ VIAL PERIprocedural Use ONLY ONE; -*morphine SULFATE 4 MG/ML PERIprocedure ONLY ONE; -ACETAMINOPHEN 1000 MG/100 ML 100 ML IV ONE; -ASPI-516 PO; -BACITRACIN TOP OINT 15 GM TUBE ONE; -BUPIVACAINE/EPINEPHRINE 0.25% PF 30 ML VIAL INFIL ONE; -CHLORHEXIDINE GLUCONATE 2 % 1 PACK (2 CLOTHS) TOPICAL PRN; -DEXAMETHASONE SOD PHOS 4 MG/ML VIAL IV ONE; -DO NOT ADM ANY ANTICOAGULANT DRUGS PRN; -EPINEPHrine HCL (1:1000) 1 MG/ML VIAL ONE; -GLYCOPYRROLATE 1 MG/5 ML SYRINGE IV PUSH ONE; -KETAMINE HCL 500 MG/10 ML VIAL ONE; -LACTATED RINGER'S 1000 ML INJ 1,000 ML IV ONE; -LACTATED RINGER'S 1000 ML IV PRN; -LIDOCAINE 1%/EPINEPHrine 1:100,000 SOLN 30 ML VIAL ONE; -LIDOCAINE HCL 1% PF 5 ML SYRINGE OTHER ONE; -METOPROLOL TARTRATE 25 MG TAB PO PRN; -MIDAZOLAM HCL 2 MG/2 ML VIAL ONE; -MINERAL OIL 10 ML VIAL ONE; -MORPHINE SULFATE 4 MG/ML INJ ONE; -NEOSTIGMINE 5 MG/5 ML SYRINGE IV PUSH ONE; -ONDANSETRON HCL 4 MG/2 ML VIAL IV ONE; -POVIDONE IODINE 5% (ANTISEPSIS KIT) 4 APPLICATIONS EACH NARE PRN; -PROPOFOL 200 MG/20 ML AMP IV ONE; -ROCURONIUM INJ 50 MG/5 ML SYRINGE IV PUSH ONE; -SODIUM CHLORID 0.9% 500 ML IV PRN; -ZYBA150T PO; -ceFAZolin 2 GM/DEX PREMIX 50 ML IV SCH; -clonazePAM 1 MG TAB PO ONE
[2018-02-28 13:09] VITALS: BP 157/74; PULSE 78; RESP 18; TEMP 97.5; O2SAT 98
[2018-02-28] MEDS ORDERED: ASPI-516 CHEW (13:17)
[2018-02-28] MEDS ORDERED: TETANUS/DIPHTHERIA TOXOID ADULT 0.5 ML VIAL IM ONE (14:00)
--- NOTE | 2018-02-28 14:25 | PD ---
HPI Chief Complaint: Laceration/Skin Injury Time Seen by Provider: 13:41 Travel History International Travel<30 days: No Contact w/Intl Traveler<30days: No Traveled to known affect area: No History of Present Illness HPI 47-year-old male with a small laceration to the left lower extremity caused by a rock. Injury occurred prior to arrival. Patient reports constant throbbing pain at the site of laceration. Symptom severity is mild to moderate. No aggravating or alleviating factors. PFSH Past Medical History Hx Anticoagulant Therapy: Yes (asa) Anxiety: Yes Depression: No Heart Rhythm Problems: No Cancer: Yes (carcinoma /melanoma on upper right back) Cardiovascular Problems: No High Cholesterol: No Chemotherapy: No Chest Pain: Yes Cerebrovascular Accident: No Diabetes: No Diminished Hearing: No Deep Vein Thrombosis: Yes (RIGHT THUMB) Endocrine: No Gastrointestinal Disorders: No Genitourinary: No Immune Disorder: No Implanted Vascular Access Dvce: No Musculoskeletal: Yes (chronic back pain) Neurologic: No Psychiatric: Yes (ANXIETY) Reproductive: No Respiratory: No Integumentary: Yes (chronic lesion to right posterior back x 2 yrs, skin CA) Immunizations Current: Yes Radiation Therapy: No Past Surgical History Abdominal Surgery: No AICD: No Cardiac Surgery: No Ear Surgery: No Endocrine Surgery: No Genitourinary Surgery: No Gynecologic Surgery: No Hysterectomy: No Joint Replacement: No Neurologic Surgery: No Oral Surgery: No Pacemaker: No Thoracic Surgery: No Other Surgery: Yes Social History Alcohol Use: Yes (rare) Tobacco Use: Yes (3/4PPD) Substance Use: Yes (MARIJUANA) Allergies-Medications (Allergen,Severity, Reaction): Coded Allergies: codeine (Unverified Allergy, Severe, THROAT SWELLS, 02/28/18) pt denies allergy to codeine tramadol (Unverified Allergy, Mild, HIVES, 02/28/18) Reported Meds & Prescriptions Reported Meds & Active Scripts Active Reported Aspirin 81 Mg Chew 81 Mg CHEW DAILY Review of Systems Except as stated in HPI: all other systems reviewed are Neg Physical Exam Narrative GENERAL: Alert and well-appearing 47-year-old male SKIN: Warm and dry. 1 cm laceration to left lower extremity. No tendon or vascular injury identified. No foreign body. HEAD: Normocephalic. EYES: No injection or drainage. NECK: Supple CARDIOVASCULAR: Regular rate and rhythm RESPIRATORY: Breath sounds equal bilaterally. No accessory muscle use. GASTROINTESTINAL: Abdomen soft, non-tender, nondistended. MUSCULOSKELETAL: No cyanosis, or edema. Full range of motion and normal sensation in the lower extremities. Palpable DP pulses. BACK: No CVA tenderness. Data Data Last Documented VS Orders Orders Tetanus/Diphtheria Tox Adult (Tetanus/Di (02/28/18 14:00) MDM Medical Decision Making Medical Screen Exam Complete: Yes Emergency Medical Condition: Yes Differential Diagnosis Laceration, tendon injury, retained foreign body Narrative Course 47-year-old male here with a 1 cm laceration to left lower extremity. No tendon or vascular injury. No foreign body. Laceration repair performed. Patient tolerated procedure well. Tetanus immunization updated. Procedures Procedure Narrative LACERATION LOCATION: Left lower extremity LENGTH: 1 cm NUMBER OF STITCHES/RHIANNA: 3 REPAIR: The area of the laceration was prepped with Betadine and sterilely draped. The laceration was infiltrated with 1% lidocaine. The wound was copiously irrigated and explored without evidence of foreign body, tendon injury or neurovascular injury. The wound was closed using 3-0 Ethilon. This was a single layer repair. A sterile dressing was applied. The patient was advised to keep the dressing clean and dry. Patient tolerated the procedure well. Diagnosis Primary Impression: Laceration of lower leg Qualified Codes: S81.812A - Laceration without foreign body, left lower leg, initial encounter Referrals: Primary Care Physician Additional Instructions: Sutures need to be removed in 7-10 days. Cleanse area daily with soap and warm water. Cover with a dressing. Do not submerge the wound in water. Disposition: 01 DISCHARGE HOME Condition: Stable Bibi Virk Feb 28, 2018 14:25
== END 2018-02-28 15:27 | disposition home or self-care (01) ==
LOC: PHEFT 13:07
DX: S81.812A Laceration without foreign body, left lower leg, initial encounter (principal); F17.200 Nicotine dependence, unspecified, uncomplicated; Z23 Encounter for immunization; Z79.82 Long term (current) use of aspirin; Z86.59 Personal history of other mental and behavioral disorders; Z85.820 Personal history of malignant melanoma of skin; Z87.39 Personal history of other diseases of the musculoskeletal system and connective tissue; W22.8XXA Striking against or struck by other objects, initial encounter
CPT/HCPCS: 12001; 90471; 90714

== ENCOUNTER 2018-03-08 12:33 | Emergency (ER) | payer OTHER ==
[~2018-03-08] VITALS: Ht 180.3 cm; Wt 82.0 kg
[~2018-03-08 12:33] MED LIST changes: +ASPI-516 CHEW; -CLON1 PO; -MORP1TAB25 PO; -OXYC-103 PO; -ZOLP1SUB2 SL
[2018-03-08 13:09] VITALS: BP 154/66; PULSE 77; RESP 17; TEMP 98.4; O2SAT 98
--- NOTE | 2018-03-08 13:22 | PD ---
HPI Chief Complaint: Laceration/Skin Injury Time Seen by Provider: 13:15 Travel History International Travel<30 days: No Contact w/Intl Traveler<30days: No Traveled to known affect area: No History of Present Illness HPI 47-year-old male presents to the emergency department requesting sutures to be removed from his left lower leg that were placed on February 28. There is some redness surrounding the wound. No purulent drainage noted. Denies fever, vomiting. Says he got hit in the leg with a rock this morning, to the same spot , and it started bleeding. Denies pain. Symptoms are mild in severity. No known aggravating or relieving factors. Allergies to codeine and tramadol. Has no other medical complaints. No modifying factors or associated signs and symptoms. PFSH Past Medical History Hx Anticoagulant Therapy: Yes (asa) Anxiety: Yes Depression: No Heart Rhythm Problems: No Cancer: Yes (carcinoma /melanoma on upper right back) Cardiovascular Problems: No High Cholesterol: No Chemotherapy: No Chest Pain: Yes Cerebrovascular Accident: No Diabetes: No Diminished Hearing: No Deep Vein Thrombosis: Yes (RIGHT THUMB) Endocrine: No Gastrointestinal Disorders: No Genitourinary: No Immune Disorder: No Implanted Vascular Access Dvce: No Musculoskeletal: Yes (chronic back pain) Neurologic: No Psychiatric: Yes (ANXIETY) Reproductive: No Respiratory: No Integumentary: Yes (chronic lesion to right posterior back x 2 yrs, skin CA) Immunizations Current: Yes Radiation Therapy: No Past Surgical History Abdominal Surgery: No AICD: No Cardiac Surgery: No Ear Surgery: No Endocrine Surgery: No Genitourinary Surgery: No Gynecologic Surgery: No Hysterectomy: No Joint Replacement: No Neurologic Surgery: No Oral Surgery: No Pacemaker: No Thoracic Surgery: No Other Surgery: Yes Social History Alcohol Use: Yes (rare) Tobacco Use: Yes (3/4PPD) Substance Use: Yes (MARIJUANA) Allergies-Medications (Allergen,Severity, Reaction): Coded Allergies: codeine (Unverified Allergy, Severe, THROAT SWELLS, 02/28/18) pt denies allergy to codeine tramadol (Unverified Allergy, Mild, HIVES, 02/28/18) Reported Meds & Prescriptions Reported Meds & Active Scripts Active Bactrim DS (Sulfamethoxazole-Trimethoprim) 800-160 Mg Tab 1 Tab PO BID 10 Days Reported Aspirin 81 Mg Chew 81 Mg CHEW DAILY Review of Systems Except as stated in HPI: all other systems reviewed are Neg Physical Exam Narrative GENERAL: Well-nourished, well-developed patient, in no acute distress SKIN: Warm and dry. Left lateral lower leg with approximately 1 cm wound that is not well approximated and 2 of the sutures are not intact to the opposite side of the wound; healing by secondary intention; minimal amount of serosanguineous drainage; some surrounding erythema noted; no purulent drainage noted. No lymphangitis. HEAD: Atraumatic. Normocephalic. EYES: Pupils equal and round. No scleral icterus. No injection or drainage. ENT: Mucosa pink and moist. Airway patent. NECK: Trachea midline. CARDIOVASCULAR: Regular rate. RESPIRATORY: No accessory muscle use. GASTROINTESTINAL: Flat. MUSCULOSKELETAL: No obvious deformities. No clubbing. No cyanosis. No edema. NEUROLOGICAL: Awake and alert. Oriented 3. No obvious cranial nerve deficits. Motor grossly within normal limits. Normal speech. PSYCHIATRIC: Appropriate mood and affect; insight and judgment normal. Data Data Last Documented VS Vital Signs Date Time Temp Pulse Resp B/P (MAP) Pulse Ox O2 Delivery O2 Flow Rate FiO2 03/08/18 13:09 98.4 77 17 154/66 (95) 98 Orders Orders Ed Discharge Order (03/08/18 13:22) MDM Medical Decision Making Medical Screen Exam Complete: Yes Emergency Medical Condition: Yes Medical Record Reviewed: Yes Differential Diagnosis Encounter for suture removal, wound infection, wound recheck Narrative Course 47-year-old male presents for suture removal of laceration to his left lower extremity. He was seen on February 28 for the laceration. 2 of the sutures are present, but not intact to the other side of the wound. The wound is open and has minimal amount of serosanguineous drainage and is healing by secondary intention. There is some surrounding erythema that may be consistent with wound infection. There is no purulent drainage noted. There is no lymphangitis. Sutures removed. Polysporin and sterile dressing applied. Bactrim prescribed for home. Instructed patient to follow up with primary care provider. Patient verbalizes understanding and agreement with treatment plan. Patient is medically cleared and stable for discharge. Discussed reasons to return to the emergency department. Patient agrees with treatment plan. The patients vital signs are stable and the patient is stable for outpatient follow- up and treatment. Patient discharged home, stable and in no acute distress. Diagnosis Primary Impression: Encounter for removal of sutures Additional Impression: Wound infection Referrals: [facility] Primary Care Physician Patient Instructions: Acute Wound Care (DC), General Instructions, Stitches Removal (ED), Wound Infection (ED) Additional Instructions: Keep area clean and dry [id number] antibiotic ointment as directed and as needed for wound care Apply bandage and change once or twice daily, or as needed Ibuprofen or Tylenol as directed and as needed for pain Antibiotics as prescribed and complete full course Follow-up with primary care provider Return to the emergency department immediately with worsening of symptoms Med/Other Pt SpecificInfo: Prescription(s) given Scripts Sulfamethoxazole-Trimethoprim (Bactrim DS) 800-160 Mg Tab 1 TAB PO BID for Infection for 10 Days, #20 TAB 0 Refills Prov: Ofe Sanchez 03/08/18 Disposition: 01 DISCHARGE HOME Condition: Stable Ofe Sanchez Mar 08, 2018 13:22
[2018-03-08] MEDS ORDERED: BACT800T5 PO (13:25)
== END 2018-03-08 13:48 | disposition home or self-care (01) ==
LOC: NEPK 12:33
DX: S81.812D Laceration without foreign body, left lower leg, subsequent encounter (principal); L08.9 Local infection of the skin and subcutaneous tissue, unspecified; F12.90 Cannabis use, unspecified, uncomplicated; F17.200 Nicotine dependence, unspecified, uncomplicated; X58.XXXD Exposure to other specified factors, subsequent encounter; Z48.02 Encounter for removal of sutures
CPT/HCPCS: 99281